=== PATIENT | female | born 1950 | race Caucasian/White ===

== ENCOUNTER 2022-10-31 10:12 | Emergency (ER) | payer MEDICARE, OTHER, SELFPAY ==
[2022-10-31 10:19] VITALS: BP 124/90; PULSE 83; RESP 16; TEMP 36.3; O2SAT 98; BMI 48.8
--- NOTE | 2022-10-31 10:30 | ED_ITS ---
HPI - General Adult General Time Seen by Provider: 10:30 Date Seen: 10/31/22 Chief complaint: Diarrhea Stated complaint: Covid+, Diarrhea, weakness Time Seen by Provider: 10/31/22 10:13 Source: patient and RN notes reviewed Mode of arrival: ambulatory Limitations: no limitations History of Present Illness HPI narrative: Patient is a 72-year-old female ambulatory in the ED with her with COVID, ongoing diarrhea and feeling weak. She states she feels just miserable. Her symptoms started on October 24. On Friday the , she became quite ill, she has had fevers up to 103. She went in to get tested on Friday and that came back positive for COVID. She had her 2 initial COVID vaccines. He she originally had some cough but that is went away. She has had some nausea but is not feeling particularly nauseous right now. She has ongoing diarrhea without blood in it. There has been no abdominal pain. She has no underlying cardiopulmonary diagnoses. She has had her gallbladder out and a hysterectomy. She is maintained on Eliquis for a blood clotting issue. She thinks it might be factor 5 Leiden but she is not sure. She has not missed any doses of Eliquis. No chest pain, no shortness of breath. Related Data Home Medications Medication Instructions Recorded Confirmed apixaban 2.5 mg tablet (Eliquis) mg 10/31/22 famotidine 20 mg tablet mg 10/31/22 hydrochlorothiazide 12.5 mg tablet mg 10/31/22 lisinopril 5 mg tablet mg 10/31/22 paroxetine HCl 20 mg tablet mg PO 10/31/22 Allergies Allergy/AdvReac Type Severity Reaction Status Date / Time Penicillins Allergy Severe swollen Verified 10/31/22 10:27 tongue meperidine [From Demerol] Allergy Intermediate Uncontrollable Verified 10/31/22 10:27 shaking Review of Systems Status of ROS: Reports: 10 or more systems reviewed and unremarkable except as noted in History and below [facility] Surgical History (Updated 10/31/22 @ 10:49 by Lisset Kay MD) History of cholecystectomy History of hysterectomy Social History Smoking Status: Never smoker How often do you have a drink containing alcohol: never AUDIT-C Alcohol total score: 0 Non-prescribed substance use: denies use service: No Exam Const: Vital Signs, click to edit/add: Vital Signs - 24 hr 10/31/22 10:19 Temperature 97.4 F L Pulse Rate [Right Pulse Oximeter] 83 Respiratory Rate 16 Blood Pressure [Ri ght Forearm] 124/90 H Pulse Oximetry 98 Oxygen Delivery Me thod Room Air Documenting provider has reviewed patient's vital signs: yes Common normals: no apparent distress, average body habitus, oriented x3, no limitations, healthy appearing, alert and well nourished General appearance: cooperative, comfortable, well kempt and well developed Nutritional appearance: overweight HENMT: Common normals: normocephalic, head/scalp atraumatic, hearing grossly normal bilaterally and external ears normal Head and scalp: normocephalic and atraumatic External ear: external ears normal Eye: Common normals: PERRL, EOMs intact bilaterally, conjunctivae normal and no scleral icterus Conjunctiva: conjunctiva(e) normal Pupil: PERRL Neck & C-Spine: Common normals: full ROM, no lymphadenopathy, supple, no meningeal signs, no JVD and thyroid normal Thyroid: thyroid normal Resp: Common normals: normal respiratory effort, no retractions, no use of accessory muscles and clear to auscultation bilaterally Effort & inspection: able to speak in complete sentences Auscultation: clear to auscultation bilaterally Cardio: Common normals: no JVD, regular rate, regular rhythm, S1 normal heart sound, S2 normal heart sound, no gallops, no clicks and no murmurs Rate: regular rate Rhythm: regular rhythm Heart sounds: S1 normal and S2 normal GI: Common normals: Normal to inspection, nondistended, normoactive bowel sounds present, soft to palpation, non-tender, no hepatosplenomegaly and no masses Auscultation: normoactive bowel sounds Palpation: soft and no hepatosplenomegaly Rectal Exam - Female: deferred Neuro: Common normals: oriented x3 Sensorium/orientation: alert Meningeal signs: no meningeal signs Psych: Appearance: well kempt Course Course Hospital Course: we will obtain a portable chest x-ray and maintain patient on pulse oximetry here, make sure she is not hypoxic. We will get appropriate labs including electrolytes to make sure she is not becoming hypokalemic or having issues due to this diarrhea. I will initiate 1 L of normal saline. She is certainly out of the guidelines for the antiviral treatment of Paxlovid, need to review possibility of remdesivir. She currently is hemodynamically stable and not hypoxic. Without any abdominal pain, no blood in stool, do not think that this diarrhea is coming from other etiologies. Reevaluation(s) Reevaluation #1: Patient's current O2 sats are 98%, no hypoxia here. Reviewed her chest x-ray showing no acute pathology. Labs are stable. She is still positive on her COVID antigen, the still infective and would recommend isolation until she is feeling better. We unfortunately do not have remdesivir and none came in on the pharmacy shipment today. She is on the last day where she might qualify for remdesivir. Did offer to call other local ERs to see if they might have any but I cannot guarantee even if they did that they would provided to her. She declines me doing this. We are going to plan on discharge to home after her IV fluids are done. Time: 12:55 Vital Signs Vital signs: Initial Vital Signs Temperature 97.4 F L 10/31/22 10:19 Temperature Source Temporal Artery Scan 10/31/22 10:19 Pulse Rate 83 10/31/22 10:19 Pulse Rhythm 10/31/22 10:19 Respiratory Rate 16 10/31/22 10:19 Blood Pressure 124/90 H 10/31/22 10:19 Blood Pressure Mean 101 10/31/22 10:19 Pulse Oximetry 98 10/31/22 10:19 Oxygen Delivery Method 10/31/22 10:19 Vital Signs Temperature 97.4 F L 10/31/22 10:19 Pulse Rate 83 10/31/22 10:19 Respiratory Rate 16 10/31/22 10:19 Blood Pressure 124/90 H 10/31/22 10:19 Pulse Oximetry 98 10/31/22 10:19 Oxygen Delivery Method 10/31/22 10:19 Temperature 97.4 F L 10/31/22 10:19 Pulse Rate 83 10/31/22 10:19 Respiratory Rate 16 10/31/22 10:19 Blood Pressure 124/90 H 10/31/22 10:19 Pulse Oximetry 98 10/31/22 10:19 Oxygen Delivery Method 10/31/22 10:19 Medical Decision Making Lab Data Lab results reviewed: Yes I reviewed the patient's lab results Labs: Lab Results 10/31/22 10/31/22 10/31/22 Range/Units 11:24 11:24 11:24 WBC 4.87 (4.50-11.00) K/uL RBC 4.87 (4.00-5.20) m/uL Hgb 14.9 (12.0-16.0) gm/dL Hct 44.2 (33.0-51.0) % MCV 91 (80-100) fL MCH 31 (26-34) pg MCHC 34 (32-36) gm/dL RDW Coeff of Burton 12.0 (11.5-15.5) % Plt Count 137 L (140-440) K/uL Neut % (Auto) 60.2 (42.0-72.0) % Lymph % (Auto) 25.9 (20-44) % Yell % (Auto) 12.9 H (0.0-11.0) % Eos % (Auto) 0.6 (0.0-7.0) % Baso % (Auto) 0.2 (0.0-3.0) % Neut # (Auto) 2.93 (1.7-7.0) K/uL Lymph # (Auto) 1.26 (0.90-2.90) K/uL Yell # (Auto) 0.60 (0.00-0.90) K/UL Eos # (Auto) 0.03 (0.00-0.50) K/uL Baso # (Auto) 0.01 (0.00-0.30) K/uL Sodium 135 (135-149) mmol/L Potassium 4.3 (3.6-5.1) mmol/L Chloride 104 (96-114) mmol/L Carbon Dioxide 26 (20-32) mmol/L BUN 16 (7-30) mg/dL Creatinine 0.8 (0.5-1.5) mg/dL Estimated Creat Clear 37.06 Estimated GFR 79 ml/min Glucose 108 (60-115) mg/dL Lactate 0.9 (0.5-1.9) mmol/L Calcium 8.9 (8.4-10.6) mg/dL Total Bilirubin 0.9 (0.1-1.5) mg/dL AST 35 (12-35) U/L ALT 38 H (4-35) U/L Alkaline Phosphatase 77 (40-150) U/L C-Reactive Protein 1.0 (0.5-1.0) mg/dL Total Protein 7.9 (6.0-8.3) g/dL Albumin 4.1 (3.3-5.0) g/dL SARS-CoV-2 Ag (Rapid) (Negative) 10/31/22 Range/Units 11:35 WBC (4.50-11.00) K/uL RBC (4.00-5.20) m/uL Hgb (12.0-16.0) gm/dL Hct (33.0-51.0) % MCV (80-100) fL MCH (26-34) pg MCHC (32-36) gm/dL RDW Coeff of Burton (11.5-15.5) % Plt Count (140-440) K/uL Neut % (Auto) (42.0-72.0) % Lymph % (Auto) (20-44) % Yell % (Auto) (0.0-11.0) % Eos % (Auto) (0.0-7.0) % Baso % (Auto) (0.0-3.0) % Neut # (Auto) (1.7-7.0) K/uL Lymph # (Auto) (0.90-2.90) K/uL Yell # (Auto) (0.00-0.90) K/UL Eos # (Auto) (0.00-0.50) K/uL Baso # (Auto) (0.00-0.30) K/uL Sodium (135-149) mmol/L Potassium (3.6-5.1) mmol/L Chloride (96-114) mmol/L Carbon Dioxide (20-32) mmol/L BUN (7-30) mg/dL Creatinine (0.5-1.5) mg/dL Estimated Creat Clear Estimated GFR ml/min Glucose (60-115) mg/dL Lactate (0.5-1.9) mmol/L Calcium (8.4-10.6) mg/dL Total Bilirubin (0.1-1.5) mg/dL AST (12-35) U/L ALT (4-35) U/L Alkaline Phosphatase (40-150) U/L C-Reactive Protein (0.5-1.0) mg/dL Total Protein (6.0-8.3) g/dL Albumin (3.3-5.0) g/dL SARS-CoV-2 Ag (Rapid) positive (Negative) Imaging Data Chest x-ray: Attestation: I have reviewed the pertinent imaging results. My impression: I see no acute infiltrate, no evidence of any COVID pneumonia on my preliminary review. Radiologist's impression: Patient: GIULIANA MANCELONA Facility:?[facility] Patient ID:?[id number] Site Patient ID:?[id number]. Site :?[id number] Study:?XRay Chest 1 VIEW PORTABLE-10/31/2022 11:09:33 AM Ordering Physician:Lilibeth Darling Final Report: Indication: Weakness, COVID Technique: Chest 1 view Comparison: None Findings/Impression: Cardiovascular and mediastinum: Heart size and vasculature are normal in caliber and appearance. Lungs and pleural space: No pleural effusion or pneumothorax. Mild pulmonary cephalization without focal consolidation. Bones and soft tissues: No acute findings. Dictated by Vargas Zafar MD @ 10/31/2022 12:27:30 PM (Electronic Signature) Critical Care Time Critical Care Time Critical Care Time: No Discharge Plan Discharge Clinical Impression: COVID-19 Patient Disposition: Home, Self-Care Condition: Stable Instructions: Acute Diarrhea (ED), Nutrition Tips for Relief of Diarrhea (ED), COVID-19 (Coronavirus Disease 2019) (ED) Additional Instructions: Review handouts provided. Do recommend ongoing quarantine/isolation until you are improving from her symptoms, you are very likely still infective to people. Try to drink plenty of fluids to stay hydrated. If you feel you are becoming dehydrated, feel you are worsening, develops respiratory symptoms of shortness of breath/difficulty breathing, do recommend re-evaluation. Activity Level: Activity as Tolerated Prescriptions: No Action famotidine 20 mg tablet paroxetine HCl 20 mg tablet PO lisinopril 5 mg tablet hydrochlorothiazide 12.5 mg tablet Eliquis 2.5 mg tablet Follow Up/Referrals: Priya Young MD [Primary Care Provider] - Stand Alone Forms: My[employer] Info Instructions
--- NOTE | 2022-10-31 10:42 | CRLHL7_ITS ---
For Patients: As a result of the Century Cures Act, medical imaging exams and procedure reports are released immediately into your electronic medical record. You may view this report before your referring provider. If you have questions, please contact your health care provider. Indication: Weakness, COVID Technique: Chest 1 view Comparison: None Findings/Impression: Cardiovascular and mediastinum: Heart size and vasculature are normal in caliber and appearance. Lungs and pleural space: No pleural effusion or pneumothorax. Mild pulmonary cephalization without focal consolidation. Bones and soft tissues: No acute findings. Dictated by Vargas Zafar MD @ 10/31/2022 12:27:30 PM (Electronically Signed)
[2022-10-31 11:29] LABS: Lactate* 0.9 mmol/L (0.5-1.9)
[2022-10-31 11:31] LABS: Basophils Absolute Auto 0.01 K/uL (0.00-0.30); Basophils Percent Auto 0.2 % (0.0-3.0); Eosinophils Absolute Auto 0.03 K/uL (0.00-0.50); Eosinophils Percent Auto 0.6 % (0.0-7.0); Hematocrit 44.2 % (33.0-51.0); Hemoglobin* 14.9 gm/dL (12.0-16.0); Immature Granulocytes Abs Auto 0.01 K/uL (0.00-0.30); Immature Granulocytes Pct Auto 0.2 %; Lymphocytes Absolute Auto 1.26 K/uL (0.90-2.90); Lymphocytes Percent Auto 25.9 % (20-44); Mean Corpuscular HGB Conc 34 gm/dL (32-36); Mean Corpuscular Hemoglobin 31 pg (26-34); Mean Corpuscular Volume 91 fL (80-100); Monocytes Percent Auto 12.9 % (0.0-11.0); Neutrophils Absolute Auto 2.93 K/uL (1.7-7.0); Neutrophils Percent Auto 60.2 % (42.0-72.0); Platelet Count* 137 K/uL (140-440); Red Blood Count 4.87 m/uL (4.00-5.20); White Blood Count* 4.87 K/uL (4.50-11.00)
[2022-10-31 11:38] LABS: Slide Review Reflex No
[2022-10-31 11:46] LABS: Albumin* 4.1 g/dL (3.3-5.0); Chloride* 104 mmol/L (96-114); Sodium* 135 mmol/L (135-149)
[2022-10-31 11:47] LABS: Potassium* 4.3 mmol/L (3.6-5.1)
[2022-10-31 11:48] LABS: Creatinine* 0.8 mg/dL (0.5-1.5); Est. Creatinine Clearance* 37.06; Estimated Glomerular Filt Rate 79 ml/min
[2022-10-31] MEDS: 0.9 % SODIUM CHLORIDE 1000 ml 1,000 ML 500 ML IV (11:48)
[2022-10-31 11:49] LABS: Alanine Aminotransferase* 38 U/L (4-35); Alkaline Phosphatase* 77 U/L (40-150); Aspartate Amino Transferase* 35 U/L (12-35); Bilirubin Total* 0.9 mg/dL (0.1-1.5); Carbon Dioxide* 26 mmol/L (20-32); Total Protein* 7.9 g/dL (6.0-8.3)
[2022-10-31 11:50] LABS: Blood Urea Nitrogen* 16 mg/dL (7-30); Calcium* 8.9 mg/dL (8.4-10.6); Glucose* 108 mg/dL (60-115)
[2022-10-31 12:05] LABS: SARS Antigen* positive (Negative)
[2022-10-31 13:21] VITALS: BP 124/68; PULSE 68; RESP 16; TEMP 36.2; O2SAT 96
== END 2022-10-31 13:29 | disposition home or self-care (01) ==
PROVIDERS: Emergency Provider Family Medicine; PCP Family Medicine
DX: U07.1 COVID-19 (principal); R19.7 Diarrhea, unspecified
CPT/HCPCS: 36415; 71045; 80053; 83605; 85025; 86140; 87426; 94761; 99284; J7030

== ENCOUNTER 2023-11-17 09:42 | Outpatient (CLI) | payer MEDICARE, OTHER, SELFPAY ==
--- NOTE | 2023-11-17 12:12 | P.ANES_ITS ---
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
--- NOTE | 2023-11-17 12:31 | W.ANESCHARGE ---
Anesthesia Charges Start Date/Time Anesthesia Start Date: 11/17/23 Anesthesia Start Time: 11:48 Stop Date/Time Anesthesia Stop Date: 11/17/23 Anesthesia Stop Time: 12:11 Summary Extremes of Age - Over 70 or under 1: MDA
== END 2023-11-17 09:43 | disposition home or self-care (01) ==
LOC: OP CLINIC 09:44
PROVIDERS: PCP Family Medicine; Visit Provider Internal Medicine Gastroenterology
DX: Z12.11 Encounter for screening for malignant neoplasm of colon (principal); K63.5 Polyp of colon; K57.30 Diverticulosis of large intestine without perforation or abscess without bleeding
CPT/HCPCS: 00811; 45380; 88305; 99100; J2704

== ENCOUNTER 2023-12-15 16:30 | Emergency (ER) | payer MEDICARE, OTHER, SELFPAY ==
[2023-12-15 16:41] VITALS: BP 187/92; PULSE 86; RESP 20; TEMP 36.2; O2SAT 95; BMI 49.1
--- NOTE | 2023-12-15 16:50 | CT_ITS ---
Patient: GIULIANA Arellano [place] Facility:?[facility] Patient ID:?[id number] Site Patient ID:?[id number]. Site :?[id number] Study:?CT-Spine Cervical WITHOUT-12/15/2023 5:38:13 PM Ordering Physician:JUDY Final Report: Indication: Fall, trauma. Technique: CT of the cervical spine performed without IV contrast. Comparison: None available. Findings: The cervical vertebral body heights are maintained without evidence of fracture. Diffuse osteopenia. Severe multilevel disc degeneration. Straightening of the cervical lordosis. Moderate to severe multilevel degeneration, with varying degrees of spinal canal stenosis, most notably at C6-7 where disc osteophyte complex results in severe spinal canal narrowing. There is moderate to severe multilevel neural foraminal stenosis. The visualized lung apices appear clear. No prevertebral soft tissue swelling. Multinodular thyroid goiter. Impression: 1. No acute osseous injury involving the cervical spine. 2. Moderate to severe multilevel spondylosis, most notably at C6-7. Please note that all CT scans at this facility use dose modulation, iterative reconstruction, and/or weight-based dosing when appropriate to reduce radiation dose to as low as reasonably achievable. Dictated by Sudheer Smith MD @ 12/15/2023 7:00:56 PM Signed by:?Sudheer Smith MD @12/15/2023 7:00:56 PM (Electronic Signature)
--- NOTE | 2023-12-15 16:50 | CT_ITS ---
Patient: GIULIANA Arellano [place] Facility:?[facility] Patient ID:?[id number] Site Patient ID:?[id number]. Site :?[id number] Study:?CT-Head WITHOUT-12/15/2023 5:39:16 PM Ordering Physician:JUDY Final Report: Indication: Trauma. Technique: CT of the brain was performed without intravenous contrast. Comparison: None relevant available at this institution. Findings: No acute blurring of the sheridan-white differentiation. There is no intracranial hemorrhage. The ventricles are proportionate to the cerebral sulci. The 4th ventricle is midline. Basal cisterns appear patent. No abnormal extra-axial fluid collection identified. There is no intracranial mass, mass effect or midline shift identified. No depressed calvarial fracture. Large posterior superficial scalp hematoma. Impression: 1. No acute intracranial process. 2. Large posterior superficial scalp hematoma. Please note that all CT scans at this facility use dose modulation, iterative reconstruction, and/or weight-based dosing when appropriate to reduce radiation dose to as low as reasonably achievable. Dictated by Sudheer Smith MD @ 12/15/2023 6:57:30 PM Signed by:?Sudheer Smith MD @12/15/2023 6:57:30 PM (Electronic Signature)
--- NOTE | 2023-12-15 16:51 | ED.FALL ---
HPI - Fall General Chief Complaint: Fall/Minor Trauma Stated Complaint: fall Time Seen by Provider: 12/15/23 16:34 History of Present Illness HPI Narrative: This 73-year-old female comes in for evaluation of injuries from a fall that occurred prior to arrival. She was at work and ambulating down some steps when she caught her shoe on something. She states that she has new shoes in the tread was different and she stumbled as she was going down some steps. She attempted to grab the railing with her left hand and twisted around backwards. She was unable to break her fall with the use of the railing. She landed about 3 steps down hitting her head. She states that she has a laceration on the back of her head. She did not have any loss of consciousness. She is not reporting any other symptoms. She is on Eliquis. She does not report a headache. Related Data Home Medications Medication Instructions Recorded Confirmed apixaban 2.5 mg tablet (Eliquis) mg BID 10/31/22 famotidine 20 mg tablet mg 10/31/22 hydrochlorothiazide 12.5 mg tablet mg 10/31/22 lisinopril 5 mg tablet mg 10/31/22 paroxetine HCl 20 mg tablet mg PO 10/31/22 Previous Rx's Medication Instructions Recorded tramadol 50 mg tablet 50 mg PO Q6H PRN pain #20 tabs 12/15/23 Allergies Allergy/AdvReac Type Severity Reaction Status Date / Time Penicillins Allergy Severe swollen Verified 12/15/23 16:49 tongue meperidine [From Demerol] Allergy Intermediate Uncontrollable Verified 12/15/23 16:49 shaking Sulfa (Sulfonamide Allergy Unknown Verified 12/15/23 16:49 Antibiotics) Flu Vaccine Allergy Unknown Uncoded 12/15/23 16:49 Review of Systems Status of ROS: Reports: 10 or more systems reviewed and unremarkable except as noted in History and below Narrative: Constitutional: No fevers, no weight gain or loss. Eyes: No discharge. No vision changes. HENT: No congestion, no sore throat, no ear pain. Cardiovascular: No chest pain, no palpitations. Respiratory: No shortness of breath, no wheezes, no cough. Gastrointestinal: No abdominal pain, no vomiting, no diarrhea. Genitourinary: No dysuria, no hematuria. Musculoskeletal: Normal range of motion. Skin: No rashes, no pruritis. Neurological: No dizziness, weakness, sensory change, speech change. Endo/Heme/Allergies: No bruising or bleeding. No polydipsia. Pysch: no suicidality, no anxiety, no insomnia. All other systems reviewed and are negative. [facility] Surgical History (Updated 10/31/22 @ 10:49 by Lisset Kay MD) History of hysterectomy ?Z90.710 - Acquired absence of both cervix and uterus (ICD-10) History of cholecystectomy ?Z90.49 - Acquired absence of other specified parts of digestive tract (ICD-10) Social History Smoking Status: Never smoker How often do you have a drink containing alcohol: never AUDIT-C Alcohol total score: 0 Non-prescribed substance use: denies use service: No Exam Narrative: Exam Narrative: Constitutional: Well-developed, well-nourished, no acute distress. HEENT: Large hematoma on the occipital region with overlying superficial abrasion with no laceration or active bleeding. Neck: Normal range of motion. Nontender. Supple. Heart: Regular. No murmurs. Normal rate. Intact distal pulses. Lungs: Clear to auscultation. She does have some mild chest discomfort when squeezing on the right lateral ribs. No pain when taking a deep breath. No wheezes, rhonchi, or rales. Abdomen: Normal bowel sounds. Nontender. No rebound tenderness. Genitalia: Deferred. Back: No midline tenderness. Normal range of motion. Extremities: Normal range of motion. No injury. Skin: Intact. No rash. Warm. No erythema or pallor. Neurologic: No altered sensation. No weakness. Alert and oriented. Psychiatric: No suicidality. No anxiety or depression. No insomnia. Nursing notes and vitals signs are reviewed. Const: Vital Signs, click to edit/add: Vital Signs - 24 hr 12/15/23 16:41 12/15/23 17:00 12/15/23 18:15 Temperature 97.2 F L Pulse Rate [Pulse Oximeter] 86 82 Respiratory Rate 20 Blood Pressure [Le ft Forearm] 187/92 H 155/79 H 140/77 H Pulse Oximetry 95 98 Oxygen Delivery Me thod Room Air Room Air 12/15/23 18:30 Temperature Pulse Rate [Pulse Oximeter] 86 Respiratory Rate 18 Blood Pressure [Le ft Forearm] 134/69 Pulse Oximetry 97 Oxygen Delivery Me thod Room Air Course Vital Signs Vital signs: Initial Vital Signs Temperature 97.2 F L 12/15/23 16:41 Temperature Source Temporal Artery Scan 12/15/23 16:41 Pulse Rate 86 12/15/23 16:41 Respiratory Rate 20 12/15/23 16:41 Blood Pressure 187/92 H 12/15/23 16:41 Blood Pressure Mean 123 H 12/15/23 16:41 Blood Pressure Position Supine 12/15/23 16:41 Pulse Oximetry 95 12/15/23 16:41 Oxygen Delivery Method Room Air 12/15/23 16:41 Vital Signs Temperature 97.2 F L 12/15/23 16:41 Pulse Rate 86 12/15/23 16:41 Respiratory Rate 20 12/15/23 16:41 Blood Pressure 187/92 H 12/15/23 16:41 Pulse Oximetry 95 12/15/23 16:41 Oxygen Delivery Method Room Air 12/15/23 16:41 Temperature 97.2 F L 12/15/23 16:41 Pulse Rate 86 12/15/23 18:30 Respiratory Rate 18 12/15/23 18:30 Blood Pressure 134/69 12/15/23 18:30 Pulse Oximetry 97 12/15/23 18:30 Oxygen Delivery Method Room Air 12/15/23 18:30 Medications Administered Medications: Generic Name Dose Route Start Last Admin Trade Name Freq PRN Reason Stop Dose Admin Acetaminophen 1,000 mg 12/15/23 17:59 12/15/23 18:16 Acetaminophen 500 Mg Tablet PO 12/15/23 18:00 1,000 mg ONCE ONE Administration MDM - Fall MDM Narrative Medical decision making narrative: This patient comes in for evaluation of injuries from a fall that occurred just prior to arrival. She has a large hematoma on her occipital region with a superficial abrasion. There is no active bleeding or laceration that requires repair. CT imaging of the head and C-spine are obtained and these returned with no acute findings. The patient is developing some pain in her right posterior lateral ribs. She likely has a bruising of her ribs. I did discuss imaging which was declined in a process of shared decision making at this time. The patient is okay to be discharged home. She was able to get up and ambulate to the bathroom. She did receive a prescription for some tablets of tramadol. Imaging Data CT scan - head: Radiologist's impression: 1. No acute intracranial process. 2. Large posterior superficial scalp hematoma. Discharge Plan Discharge Clinical Impression: Hematoma of occipital region of scalp, Contusion of rib on right side Patient Disposition: Home w/ Parent or Adult Condition: Stable Additional Instructions: Take medication as needed and indicated. Activity as tolerated. Follow up with MD return if worsening. Prescriptions: New tramadol 50 mg tablet 50 mg PO Q6H PRN (Reason: pain) Qty: 20 0RF No Action famotidine 20 mg tablet paroxetine HCl 20 mg tablet PO lisinopril 5 mg tablet hydrochlorothiazide 12.5 mg tablet Eliquis 2.5 mg tablet BID Follow Up/Referrals: Veronique Duenas MD [Primary Care Provider] - Stand Alone Forms: [employer] Info Instructions
[2023-12-15 17:00] VITALS: BP 155/79; PULSE 82; O2SAT 98
[2023-12-15 18:15] VITALS: BP 140/77
[2023-12-15] MEDS: ACETAMINOPHEN 500 MG TABLET 1000 MG PO (18:16)
[2023-12-15 18:30] VITALS: BP 134/69; PULSE 86; RESP 18; O2SAT 97
== END 2023-12-15 19:15 | disposition home or self-care (01) ==
PROVIDERS: Emergency Provider Emergency Medicine Emergency Medical Services; PCP Family Medicine
DX: S00.01XA Abrasion of scalp, initial encounter (principal); S00.03XA Contusion of scalp, initial encounter; S20.211A Contusion of right front wall of thorax, initial encounter; W10.9XXA Fall (on) (from) unspecified stairs and steps, initial encounter; Y99.0 Civilian activity done for income or pay
CPT/HCPCS: 70450; 72125; 99284; 99285; A9270

== ENCOUNTER 2023-12-26 09:35 | Emergency (ER) | payer OTHER, MEDICARE, SELFPAY ==
[2023-12-26 09:41] VITALS: BP 150/82; PULSE 76; RESP 16; TEMP 36.9; O2SAT 97; BMI 47.4
--- NOTE | 2023-12-26 09:56 | ED.GENADULT ---
HPI - General Adult General Chief complaint: Head Injury/Pain Stated complaint: head pain from previous fall Time Seen by Provider: 12/26/23 09:52 Source: patient Mode of arrival: ambulatory Limitations: no limitations History of Present Illness HPI narrative: 73-year-old female coming in today complaining of bleeding from her scalp. Patient was seen in the ER on 12/14 after she suffered a fall at work. At that time she was diagnosed with a hematoma. Head CT was done was unremarkable. She is on a blood thinner. She states that she followed up 2 days ago with her primary care provider who recommended she put a heating pad on hematoma for scalp to help it go down. She states that that is what she did however soon afterwards she started bleeding from the area. Patient states she was having some foggy vision since her accident, but states that in the last 2 days she actually feels more clear. She also states that the headache she had in general is also getting better. Triage nurse recommended she come to the ER. Related Data Home Medications Medication Instructions Recorded Confirmed apixaban 2.5 mg tablet (Eliquis) mg BID 10/31/22 famotidine 20 mg tablet mg 10/31/22 hydrochlorothiazide 12.5 mg tablet mg 10/31/22 lisinopril 5 mg tablet mg 10/31/22 paroxetine HCl 20 mg tablet mg PO 10/31/22 metformin 500 mg tablet,extended PO 12/26/23 release 24 hr Previous Rx's Medication Instructions Recorded tramadol 50 mg tablet 50 mg PO Q6H PRN pain #20 tabs 12/15/23 Allergies Allergy/AdvReac Type Severity Reaction Status Date / Time Penicillins Allergy Severe swollen Verified 12/15/23 16:49 tongue meperidine [From Demerol] Allergy Intermediate Uncontrollable Verified 12/15/23 16:49 shaking Sulfa (Sulfonamide Allergy Unknown Verified 12/15/23 16:49 Antibiotics) Flu Vaccine Allergy Unknown Uncoded 12/15/23 16:49 Review of Systems Status of ROS: Reports: 10 or more systems reviewed and unremarkable except as noted in History and below [facility] Surgical History History of hysterectomy ?Z90.710 - Acquired absence of both cervix and uterus (ICD-10) History of cholecystectomy ?Z90.49 - Acquired absence of other specified parts of digestive tract (ICD-10) Social History Smoking Status: Never smoker How often do you have a drink containing alcohol: never AUDIT-C Alcohol total score: 0 Non-prescribed substance use: denies use service: No Exam Narrative: Exam Narrative: Obese, well-developed patient in no acute distress. Alert and oriented. Answers questions appropriately. Mood and affect are appropriate. Thoughts are goal oriented and rational. No tangential or magical thinking noted. Patient speaks in full sentences without needing to catch her breath. HEENT: Normocephalic appear Pupils are equally round reactive to light. Extraocular muscles are intact. Conjunctivae are moist without any icterus noted. Moist mucous membranes. Over the left posterior parietal scalp patient has a small hematoma. The skin overlying the hematoma appears to have been abraded. The area is very slowly oozing. There are no lacerations that would benefit from suture repair. Const: Vital Signs, click to edit/add: Vital Signs - 24 hr 12/26/23 09:41 Temperature 98.4 F Pulse Rate [Pulse Oximeter] 76 Respiratory Rate 16 Blood Pressure [Ri ght Forearm] 150/82 H Pulse Oximetry 97 Oxygen Delivery Me thod Room Air Course Course ED Course: The scalp was cleaned and Dermabond was applied over the abraded area. The oozing did stop. Vital Signs Vital signs: Initial Vital Signs Temperature 98.4 F 12/26/23 09:41 Temperature Source Oral 12/26/23 09:41 Pulse Rate 76 12/26/23 09:41 Respiratory Rate 16 12/26/23 09:41 Blood Pressure 150/82 H 12/26/23 09:41 Blood Pressure Mean 104 12/26/23 09:41 Blood Pressure Position Sitting 12/26/23 09:41 Pulse Oximetry 97 12/26/23 09:41 Oxygen Delivery Method Room Air 12/26/23 09:41 Vital Signs Temperature 98.4 F 12/26/23 09:41 Pulse Rate 76 12/26/23 09:41 Respiratory Rate 16 12/26/23 09:41 Blood Pressure 150/82 H 12/26/23 09:41 Pulse Oximetry 97 12/26/23 09:41 Oxygen Delivery Method Room Air 12/26/23 09:41 Temperature 98.4 F 12/26/23 09:41 Pulse Rate 76 12/26/23 09:41 Respiratory Rate 16 12/26/23 09:41 Blood Pressure 150/82 H 12/26/23 09:41 Pulse Oximetry 97 12/26/23 09:41 Oxygen Delivery Method Room Air 12/26/23 09:41 Medical Decision Making MDM Narrative Medical decision making narrative: Abrasion of the scalp overlying hematoma status post a fall had occurred on 12/14. Treated per above. Discharge Plan Discharge Additional Instructions: Would refrain from touching the area given the fragile nature of the skin overlying the hematoma on your scalp. Okay to shower like you normally would but avoid scrubbing that area. The glue will fall off when it is ready. Should it started oozing again, would simply hold pressure to the area with gauze for 5-10 minutes. If the bleeding does not stop, return to the ER. Prescriptions: No Action famotidine 20 mg tablet paroxetine HCl 20 mg tablet PO lisinopril 5 mg tablet hydrochlorothiazide 12.5 mg tablet Eliquis 2.5 mg tablet BID tramadol 50 mg tablet 50 mg PO Q6H PRN (Reason: pain) Qty: 20 0RF metformin 500 mg tablet extended release 24 hr PO Follow Up/Referrals: Veronique Duenas MD [Primary Care Provider] - Stand Alone Forms: All Copy Productsth Info Instructions
== END 2023-12-26 10:30 | disposition home or self-care (01) ==
PROVIDERS: Emergency Provider Family Medicine; PCP Family Medicine
DX: S00.03XA Contusion of scalp, initial encounter (principal)
CPT/HCPCS: 12001; 99283; 99284